=== PATIENT | female | born 1970 | race Caucasian/White ===

== ENCOUNTER 2018-06-26 14:39 | Emergency (ER) | payer MEDICARE, OTHER ==
[~2018-06-26] VITALS: Ht 167.6 cm; Wt 95.3 kg
[~2018-06-26 14:39] MED LIST: OXYC-328 PO; PANT20TA2 PO
[2018-06-26 15:05] VITALS: BP 135/83
[2018-06-26] MEDS ORDERED: DIPHTH,PERTUSS(ACELL),TET TOX 0.5 ML DISP.SYRIN. VAX IM ONE (15:15)
[2018-06-26] MEDS ORDERED: oxyCODONE/APAP 5/325 1 TAB TABLET PO ONE ×2 (15:15→16:45)
[2018-06-26] MEDS ORDERED: NEOMY/BACITR/POLYMYXIN OINT PACKET. TP ONE (15:15)
--- NOTE | 2018-06-26 15:16 | PHYS DOC ---
Past Medical History Past Medical History: Anxiety Additional Past Medical Histor: Chronic neck pain - bulging cervical discs, Pneumothorax Past Surgical History: Other Additional Past Surgical Histo: right hip x2, thyroidectomy, neck sx Alcohol Use: None Drug Use: None Adult General Chief Complaint Chief Complaint: FINGER INJURY [facility] HPI Patient is a 48 year old female with history of anxiety who presents today with left index finger injury as well as low back pain. Patient rates her pain at 10 out of 10. She states her left index finger got caught in a folding step stool three days ago. She states during the process she fell on her back. Denies any LOC. She describes the pain as sharp and constant worse on the left index finger. She states the pain is worse on the index finger on touching or moving the finger. Review of Systems Review of Systems Constitutional: Denies fever or chills [] Eyes: Denies change in visual acuity, redness, or eye pain [] HENT: Denies nasal congestion or sore throat [] Respiratory: Denies cough or shortness of breath [] Cardiovascular: No additional information not addressed in HPI [] GI: Denies abdominal pain, nausea, vomiting, bloody stools or diarrhea [] : Denies dysuria or hematuria [] Musculoskeletal: Reports low back pain and left index finger pain Integument: Denies rash or skin lesions [] Neurologic: Denies headache, focal weakness or sensory changes [] All other systems were reviewed and found to be within normal limits, except as documented in this note. Current Medications Current Medications Current Medications Medications (Trade) Dose Ordered Sig/Crystal Start Time Stop Time Status Last Admin Dose Admin Ceftriaxone Sodium (Rocephin Im) 1 gm 1X ONCE 06/26/18 16:30 06/26/18 16:31 DC 06/26/18 16:42 1 GM Diphtheria/ Tetanus/Acell Pertussis (Boostrix) 0.5 ml ONCE ONCE 06/26/18 15:15 06/26/18 15:16 DC 06/26/18 15:25 0.5 ML Lidocaine HCl (Xylocaine-Mpf 1% 2ml Vial) 2 ml 1X ONCE 06/26/18 16:30 06/26/18 16:31 DC 06/26/18 16:42 2 ML Neomycin/ Polymyxin/ Bacitracin (Triple Antibiotic Ointment) 1 pkt 1X ONCE 06/26/18 15:15 06/26/18 15:16 DC 06/26/18 15:15 1 PKT Oxycodone/ Acetaminophen (Percocet 5/325) 1 tab 1X ONCE 06/26/18 16:45 06/26/18 16:46 DC 06/26/18 16:41 1 TAB Allergies Allergies Allergies Coded Allergies Type Severity Reaction Last Updated Verified lisinopril Allergy Severe SWELLING 06/26/18 Yes hydrocodone bitartrate Allergy Intermediate Hives, itching. 12/17/15 Yes Physical Exam Physical Exam Constitutional: Well developed, well nourished, no acute distress, non-toxic appearance. [] HENT: Normocephalic, atraumatic, bilateral external ears normal, oropharynx moist, no oral exudates, nose normal. [] Eyes: PERRLA, EOMI, conjunctiva normal, no discharge. [] Neck: Normal range of motion, no tenderness, supple, no stridor. [] Cardiovascular:Heart rate regular rhythm, no murmur [] Lungs & Thorax: Bilateral breath sounds clear to auscultation [] Abdomen: Bowel sounds normal, soft, no tenderness, no masses, no pulsatile masses. [] Skin: Warm, dry, no erythema, no rash. [] Back: Diffuse paraspinal muscle tenderness to the right lumbar spine, no midline lumbar spine tenderness, no CVA tenderness. [] Extremities: Left index finger with moderate soft tissue swelling especially mid phalange next, there is a superficial laceration on the ventral aspect of the left index finger mid phalange next approximately 2 cm long. There is moderate ecchymosis on the left index finger. There is a blister on the dorsal aspect of the left index finger mid phalange next. There is no drainage. Patient has limited ROM to the finger. Adequate radius sensation to the left index finger. +2 left radial pulse. Cap refill less than 2 seconds the left index finger. Neurologic: Alert and oriented X 3, normal motor function, normal sensory function, no focal deficits noted. [] Psychologic: Affect normal, judgement normal, mood normal. [] Current Patient Data Vital Signs Vital Signs Date Time Temp Pulse Resp B/P (MAP) Pulse Ox O2 Delivery O2 Flow Rate FiO2 06/26/18 15:05 97.9 63 18 135/83 (100) 97 Room Air 97.9 EKG EKG [] Radiology/Procedures Radiology/Procedures []PROCEDURE: FINGER(S) LEFT 3 views left second finger 06/26/2018 3:09 PM Indication: fall on back and left 2nd digit 2 days ago Comparison: None Findings: There is a comminuted fracture of the second middle phalanx. Fracture extends to the articular surface. There is a fracture involving the dorsal base of the distal phalanx with mild displacement. Mild radial displacement of the mid phalangeal fracture is seen. There is no dislocation. No other fractures are seen. Overlying soft tissue edema is noted. No radiopaque foreign body is seen. IMPRESSION: Comminuted fracture of the second middle phalanx. Fracture involving the dorsal base of the second distal phalanx. Electronically signed by: Yovani Mathews MD (06/26/2018 3:54 PM) [facility] DICTATED and SIGNED BY: YOVANI MATHEWS MD DATE: 06/26/18 1551 Course & Med Decision Making Course & Med Decision Making Pertinent Labs and Imaging studies reviewed. (See chart for details) This is a 48-year-old female patient presenting to the ED today with left index finger pain and low back pain. Her left index finger got caught in a stepstool and she fell. Finger is very swollen has a laceration over it and a blister on the ventral aspect. See physical exam. Left index finger x-rays interpreted by radiologist -Comminuted fracture of the second middle phalanx. Fracture involving the dorsal base of the second distal phalanx. Finger was cleaned and placed in a splint by the ED RN, Neosporin also applied over the laceration site. Patient also given Rocephin 1 g in the ED. Tetanus updated. 16:27 Spoke with Crystal at transfer line, awaiting accepting physician 17:05 Crystal called back and stated Dr. Samuel will accept patient. Waiting for a bed at [facility] Disclaimer [facility] Disclaimer This electronic medical record was generated, in whole or in part, using a voice recognition dictation system. Departure Departure Impression: Primary Impression: Fracture of phalanx of index finger Additional Impressions: Finger laceration Fall from standing Lumbar contusion Disposition: 05 TRANSFER OTHER Condition: STABLE Referrals: EDUARDO IRWIN (PCP) Problem Qualifiers Primary Impression: Fracture of phalanx of index finger Encounter type: initial encounter Fracture type: open Phalanx: middle Fracture alignment: nondisplaced Laterality: left Qualified Codes: S62.651B - Nondisplaced fracture of middle phalanx of left index finger, initial encounter for open fracture Additional Impressions: Finger laceration Encounter type: initial encounter Finger: index finger Damage to nail status: with damage Foreign body presence: without foreign body Laterality: left Qualified Codes: S61.311A - Laceration without foreign body of left index finger with damage to nail, initial encounter Fall from standing Encounter type: initial encounter Qualified Codes: W19.XXXA - Unspecified fall, initial encounter Lumbar contusion Encounter type: initial encounter Qualified Codes: S30.0XXA - Contusion of lower back and pelvis, initial encounter ANITRA ROY APRN Jun 26, 2018 15:16
--- NOTE | 2018-06-26 15:57 | RAD ---
3 views left second finger 06/26/2018 3:09 PM Indication: fall on back and left 2nd digit 2 days ago Comparison: None Findings: There is a comminuted fracture of the second middle phalanx. Fracture extends to the articular surface. There is a fracture involving the dorsal base of the distal phalanx with mild displacement. Mild radial displacement of the mid phalangeal fracture is seen. There is no dislocation. No other fractures are seen. Overlying soft tissue edema is noted. No radiopaque foreign body is seen. IMPRESSION: Comminuted fracture of the second middle phalanx. Fracture involving the dorsal base of the second distal phalanx. Electronically signed by: Yovani Dobbins MD (06/26/2018 3:54 PM) [facility]
--- NOTE | 2018-06-26 15:58 | RAD ---
3 views lumbar spine 06/26/2018 INDICATION: Back pain following injury. COMPARISON STUDY: None FINDINGS: No evidence of acute fracture or alignment abnormality is identified. Vertebral body heights are preserved. Degenerative disc space narrowing is seen at L2-S1. Mild facet arthrosis is seen in the inferior lumbar spine. Cholelithiasis noted. No acute soft tissue changes are seen. IMPRESSION: 1. Degenerative changes of lumbar spine without evidence of acute fracture or alignment abnormality 2. Cholelithiasis. Electronically signed by: Yovani Dobbins MD (06/26/2018 3:55 PM) [facility]
[2018-06-26] MEDS ORDERED: cefTRIAXone IM 1 GM VIAL IM ONE (16:30)
[2018-06-26] MEDS ORDERED: LIDOCAINE 1% PF 2 ML VIAL. INJ ONE (16:30)
== END 2018-06-26 18:04 | disposition short-term general hospital (02) ==
LOC: ER 14:39
DX: S62.651A Nondisplaced fracture of middle phalanx of left index finger, initial encounter for closed fracture (principal); S30.0XXA Contusion of lower back and pelvis, initial encounter; F41.9 Anxiety disorder, unspecified; G89.29 Other chronic pain; M54.2 Cervicalgia; Z88.8 Allergy status to other drugs, medicaments and biological substances; Z88.5 Allergy status to narcotic agent; W18.09XA Striking against other object with subsequent fall, initial encounter; Y93.89 Activity, other specified; Y92.89 Other specified places as the place of occurrence of the external cause; Y99.8 Other external cause status
CPT/HCPCS: 29130; 72100; 73140; 90471; 90715; 96372; 99285; J0696; 99284-25

== ENCOUNTER 2018-08-09 13:06 | Emergency (ER) | payer MEDICARE ==
[~2018-08-09] VITALS: Ht 165.1 cm; Wt 95.3 kg
[2018-08-09 13:20] VITALS: BP 138/103
[2018-08-09] MEDS ORDERED: KETOROLAC 60 MG/2 ML INJ. IM ONE (14:00)
[2018-08-09] MEDS ORDERED: METH4TAB2 PO (14:20)
--- NOTE | 2018-08-09 14:21 | PHYS DOC ---
Past Medical History Past Medical History: Anxiety Additional Past Medical Histor: Chronic neck pain - bulging cervical discs, Pneumothorax Past Surgical History: Other Additional Past Surgical Histo: right hip x2, thyroidectomy, neck sx Alcohol Use: None Drug Use: None Adult General Chief Complaint Chief Complaint: LOWER BACK PAIN OR INJURY [facility] HPI Patient is a 48 year old [f__sex] who presents with [] Review of Systems Review of Systems Constitutional: Denies fever or chills [] Eyes: Denies change in visual acuity, redness, or eye pain [] HENT: Denies nasal congestion or sore throat [] Respiratory: Denies cough or shortness of breath [] Cardiovascular: No additional information not addressed in HPI [] GI: Denies abdominal pain, nausea, vomiting, bloody stools or diarrhea [] : Denies dysuria or hematuria [] Musculoskeletal: Denies back pain or joint pain [] Integument: Denies rash or skin lesions [] Neurologic: Denies headache, focal weakness or sensory changes [] Endocrine: Denies polyuria or polydipsia [] All other systems were reviewed and found to be within normal limits, except as documented in this note. Current Medications Current Medications Current Medications Medications (Trade) Dose Ordered Sig/Crystal Start Time Stop Time Status Last Admin Dose Admin Ketorolac Tromethamine (Toradol Im) 60 mg 1X ONCE 08/09/18 14:00 08/09/18 14:01 DC 08/09/18 13:54 60 MG Allergies Allergies Allergies Coded Allergies Type Severity Reaction Last Updated Verified lisinopril Allergy Severe SWELLING 06/26/18 Yes hydrocodone bitartrate Allergy Intermediate Hives, itching. 12/17/15 Yes Physical Exam Physical Exam Constitutional: Well developed, well nourished, no acute distress, non-toxic appearance. [] HENT: Normocephalic, atraumatic, bilateral external ears normal, oropharynx moist, no oral exudates, nose normal. [] Eyes: PERRLA, EOMI, conjunctiva normal, no discharge. [] Neck: Normal range of motion, no tenderness, supple, no stridor. [] Cardiovascular:Heart rate regular rhythm, no murmur [] Lungs & Thorax: Bilateral breath sounds clear to auscultation [] Abdomen: Bowel sounds normal, soft, no tenderness, no masses, no pulsatile masses. [] Skin: Warm, dry, no erythema, no rash. [] Back: No tenderness, no CVA tenderness. [] Extremities: No tenderness, no cyanosis, no clubbing, ROM intact, no edema. [] Neurologic: Alert and oriented X 3, normal motor function, normal sensory function, no focal deficits noted. [] Psychologic: Affect normal, judgement normal, mood normal. [] Current Patient Data Vital Signs Vital Signs Date Time Temp Pulse Resp B/P (MAP) Pulse Ox O2 Delivery O2 Flow Rate FiO2 08/09/18 13:20 97.7 67 18 138/103 (115) 99 Room Air 97.7 EKG EKG [] Radiology/Procedures Radiology/Procedures [] Course & Med Decision Making Course & Med Decision Making Pertinent Labs and Imaging studies reviewed. (See chart for details) [] Dragon Disclaimer Dragon Disclaimer This electronic medical record was generated, in whole or in part, using a voice recognition dictation system. Departure Departure Impression: Primary Impression: Sciatica Disposition: HOME, SELF-CARE Condition: STABLE Referrals: NO PCP (PCP) Patient Instructions: Sciatica Additional Instructions: Take the medication as directed. Follow-up with your primary care provider in 4 days if not improving or return to the emergency department if worsening. Scripts Methylprednisolone (MEDROL) 4 Mg Tab.ds.pk 1 PKG PO UD for sciatica, #1 PKG Prov: ELIAN GARCÍA APRN 08/09/18 ELIAN GARCÍA APRN Aug 09, 2018 14:21
== END 2018-08-09 14:30 | disposition home or self-care (01) ==
LOC: ER 13:06
DX: M54.41 Lumbago with sciatica, right side (principal); G89.29 Other chronic pain; Z98.890 Other specified postprocedural states
CPT/HCPCS: 96372; 99283; J1885

== ENCOUNTER 2018-08-23 16:22 | Emergency (ER) | payer MEDICARE ==
[~2018-08-23] VITALS: Ht 172.7 cm; Wt 98.9 kg
[~2018-08-23 16:22] MED LIST changes: +METH4TAB2 PO; -OXYC-328 PO; +OXYC1TAB22 PO
[2018-08-23 16:39] VITALS: BP 149/78
--- NOTE | 2018-08-23 17:08 | RAD ---
Examination: 3 views of the left hand HISTORY: History of remote the pin yesterday, injury COMPARISON: 06/26/2018. FINDINGS: Oblique appearing fracture of the midshaft of the middle phalanx of the second digit is less prominent compared to prior exam likely ongoing healing changes No evidence of displacement identified The alignment of the metacarpophalangeal, interphalangeal grossly appears unremarkable IMPRESSION: Oblique appearing fracture of the midshaft of the middle phalanx of the second digit is less prominent compared to prior exam likely ongoing healing changes with no evidence of displacement. Electronically signed by: Godwin Olivas MD (08/23/2018 5:04 PM) [facility]
--- NOTE | 2018-08-23 17:14 | PHYS DOC ---
Past Medical History Past Medical History: Anxiety Additional Past Medical Histor: Chronic neck pain - bulging cervical discs, Pneumothorax Past Surgical History: Other Additional Past Surgical Histo: right hip x2, thyroidectomy, neck sx Alcohol Use: None Drug Use: None Adult General Chief Complaint Chief Complaint: FINGER INJURY [facility] Patient is a 48 year old female who presents with complaints of her finger having a bend in it after she had a pin removed from a fracture repair yesterday. She states that her surgeon is at but she did not want to drive all the way to to have her finger looked at. She states that she tried to call the surgeon's office this evening but did not receive a call back. She is requesting x-rays to make sure that she did not really break the finger. Upon further questioning she states that she was given a splint to wear for her finger at states that the physical therapist told her not to put it on and wear it all the time. She denies pain or new injury. Review of Systems Review of Systems Constitutional: Denies fever or chills [] Respiratory: Denies cough or shortness of breath [] Cardiovascular: No additional information not addressed in HPI [] GI: Denies abdominal pain, nausea, vomiting, bloody stools or diarrhea [] : Denies dysuria or hematuria [] Musculoskeletal: See history of present illness Integument: Denies rash or skin lesions [] Neurologic: Denies headache, focal weakness or sensory changes [] Endocrine: Denies polyuria or polydipsia [] All other systems were reviewed and found to be within normal limits, except as documented in this note. Allergies Allergies Allergies Coded Allergies Type Severity Reaction Last Updated Verified lisinopril Allergy Severe SWELLING 06/26/18 Yes hydrocodone bitartrate Allergy Intermediate Hives, itching. 12/17/15 Yes Physical Exam Physical Exam Constitutional: Well developed, well nourished, no acute distress, non-toxic appearance. [] Cardiovascular:Heart rate regular rhythm, no murmur [] Lungs & Thorax: Bilateral breath sounds clear to auscultation [] Abdomen: Bowel sounds normal, soft, no tenderness, no masses, no pulsatile masses. [] Skin: Warm, dry, no erythema, no rash. [] Back: No tenderness, no CVA tenderness. [] Extremities: No tenderness, no cyanosis, no clubbing, ROM slightly decreased due to swelling and healing of the fracture, mild edema, no ecchymosis or calor noted, tendons are intact. [] Neurologic: Alert and oriented X 3, normal motor function, normal sensory function, no focal deficits noted. [] Psychologic: Affect normal, judgement normal, mood normal. [] Current Patient Data Vital Signs Vital Signs Date Time Temp Pulse Resp B/P (MAP) Pulse Ox O2 Delivery O2 Flow Rate FiO2 08/23/18 16:39 98.6 75 16 149/78 (101) 93 Room Air 98.6 EKG EKG [] Radiology/Procedures Radiology/Procedures []PATIENT: SUNDAR CORBIN SACCOUNT: [id number]#: [id number] : 1970 LOCATION: ER AGE: 48 SEX: F EXAM STATUS: REG ER ORD. PHYSICIAN: ELIAN GARCÍA APRN REASON: pin removed yesterday, worried she rebroke finger PROCEDURE: HAND LEFT 3V Examination: 3 views of the left hand HISTORY: History of remote the pin yesterday, injury COMPARISON: 06/26/2018. FINDINGS: Oblique appearing fracture of the midshaft of the middle phalanx of the second digit is less prominent compared to prior exam likely ongoing healing changes No evidence of displacement identified The alignment of the metacarpophalangeal, interphalangeal grossly appears unremarkable IMPRESSION: Oblique appearing fracture of the midshaft of the middle phalanx of the second digit is less prominent compared to prior exam likely ongoing healing changes with no evidence of displacement. Electronically signed by: Godwin Olivas MD (08/23/2018 5:04 PM) [facility] DICTATED and SIGNED BY: GODWIN OLIVAS MD DATE: 08/23/18 1700 Course & Med Decision Making Course & Med Decision Making Pertinent Labs and Imaging studies reviewed. (See chart for details) []X-ray shows a healing fracture. The patient is to follow-up with her surgeon. I encouraged her to wear the splint that was made for her finger until she is evaluated by her surgeon. Dragon Disclaimer Dragon Disclaimer This electronic medical record was generated, in whole or in part, using a voice recognition dictation system. Departure Departure Impression: Primary Impression: Finger injury Disposition: 01 HOME, SELF-CARE Condition: STABLE Referrals: NO PCP (PCP) Patient Instructions: Splint Care, [id number] Additional Instructions: Wear your splint until evaluated by your orthopedic surgeon. Continue your prescribed at home routine. If worsening return to the emergency department. ELIAN GARCÍA APRN Aug 23, 2018 17:14
== END 2018-08-23 17:24 | disposition home or self-care (01) ==
LOC: ER 16:22
DX: S62.651 Nondisplaced fracture of middle phalanx of left index finger (principal); Z88.5 Allergy status to narcotic agent; Z88.8 Allergy status to other drugs, medicaments and biological substances; X58.XXXD Exposure to other specified factors, subsequent encounter
CPT/HCPCS: 73130; 99283